=== PATIENT | male | born 1935 | race Native Hawaiian/Other Pacific Islander ===

== ENCOUNTER 2019-04-11 19:22 | Emergency (ER) | payer OTHER ==
[~2019-04-11] VITALS: Ht 157.5 cm; Wt 73.5 kg
[2019-04-11 20:00] LABS: PLATELET COUNT 150 K/uL (142-355)
[2019-04-11 20:27] LABS: POTASSIUM 3.8 mmol/L (3.6-5.2)
[2019-04-11 20:56] VITALS: BP 136/62; TEMP 97.8
[2019-04-11] MEDS ORDERED: ACTOS45 MG PO (22:07)
[2019-04-11] MEDS ORDERED: LORA0.5T17 PO (22:08)
[2019-04-11] MEDS ORDERED: AMOX875T8 PO (22:08)
[2019-04-11] MEDS ORDERED: DIVA125C PO (22:09)
[2019-04-11] MEDS ORDERED: DOCU100C10 PO (22:09)
[2019-04-11] MEDS ORDERED: TAMS0.4C PO (22:10)
[2019-04-11] MEDS ORDERED: LISI10TA11 PO (22:11)
[2019-04-11] MEDS ORDERED: HALO5INJ3 IM (22:11)
[2019-04-11] MEDS ORDERED: NOVOLIN R100 UNIT/1 IM (22:16)
[2019-04-11] MEDS ORDERED: RISP0.5T2 PO (22:16)
[2019-04-11] MEDS ORDERED: XIFAXAN550 MG PO (22:17)
== END 2019-04-11 20:56 | disposition still patient (30) ==
LOC: ED 19:22 → EDBD 19:22 → ED 20:56
PROVIDERS: Hospitalist
DX: F03.91 Unspecified dementia, unspecified severity, with behavioral disturbance (principal); Z04.6 Encounter for general psychiatric examination, requested by authority
CPT/HCPCS: 80053; 85027; 93005; 99283; 99285